=== PATIENT | female | born 1990 | race Caucasian/White ===

== ENCOUNTER 2021-03-28 00:39 | Inpatient (IN) ==
[2021-03-28] MEDS ORDERED: ONDANSETRON INJ 2 MG/ML 2 ML VIAL IV STA (01:13)
[2021-03-28] MEDS ORDERED: SODIUM CHLORIDE 0.9% 1000ML 1,000 ML IV ONE ×2 (01:13→03:01)
[2021-03-28] MEDS ORDERED: HYDROmorphone INJ 1 MG/ML SYRINGE IV STA (01:13)
--- NOTE | 2021-03-28 01:19 | Emergency Department Note ---
Impression & Plan Calculus of distal left ureter, Hydronephrosis of left kidney, Intractable nausea and vomiting ED Provider Note Name: LEOLA LOPEZ Age: 30 Sex: F Arrives Via: Walk-In Informant: Patient, Significant other ED Provider: Ata Gomez MD Chief Complaint: Left flank pain Impression: See Above Medical Decision Makin yr old female with severe left flank pain seen earlier in day in ED and found to have left distal ureteral calculus with hydro. Was feeling much better and wishing to try home management. Worsening pain, nausea, and vomiting at home. Home meds ineffective. Returns for further evaluation. Dilaudid x 2, Toradol, Zofran, Reglan eventually symptoms improving some. With degree of pain and failure outpatient will bring in for further management. Afebrile though WBC has been trending up from this morning. No clear evidence currently infected though. No indication to require repeat CT of a/p already done earlier. Hospitalist in to evaluate further Prior Medical Record and Triage/Nursing Notes reviewed by Me Additional history obtained from chart Differentials:Renal colic, UTI, appendicitis, diverticulitis, mesenteric ischemia, aortic pathology, infections, inflammatory bowel disease, PUD, biliary pathology, as well as other pathologies. Vital Signs: reviewed and remarkable for no significant abnormalities Interventions: saline lock, nss bolus 2 L IV, zofran iv, dilaudid iv x 2, toradol iv, reglan iv Labs:Reviewed and remarkable for mild wbc elevation Imaging:reviewed earlier ct a/p Consults:Dr Subhash Adkins hospitalist Plan: Disposition:Hospitalization. Condition: Good History of Present Illness:30 yr old female without history fo renal colic arrives for second time in 24 hours with left flank pain. Earlier in day was diagnosed with left 5 mm distal ureteral stone and hydro. After fluids, toradol, morphine feeling much improved and attempted home management. Symptoms worsening since getting home associated with nausea, vomiting, and severe pain. No improvement with oxy ir. Nothing makes better nor worse. No falls, trauma, injureis. Admits this has made her anxiety very bad and is having some chills though she states chills are from anxiety. No history of renal colic. No recent inciting events. No sob, headache, cough, fevers, syncope, abdominal pain, chest pain, urinary symptoms, leg swelling, diarrhea nor other symptoms. ROS: See above HPI for pertinent positives & negatives. A total of 10 systems reviewed and were otherwise negative. Past Medical History:See Below Past Surgical History:See Below Family History:See Below Social History:See Below Home Medications:See Below Allergies:See Below Vitals:Blood Pressure: 114/74, Pulse 78, RR 20, T 36.6C, O2 97% on RA Physical Exam: GENERAL: Patient is very uncomfortable appearing and in moderate distress. Dry heaving and crying. EYES: No scleral icterus, unremarkable pupils. ENT: Mucous membranes moist, no nasal congestion. NECK: No masses appreciated, nomeningismus, trachea is midline. RESPIRATORY: No dyspnea. Clear to auscultation and equal bilaterally. No wheeze, no rhonchi. CARDIOVASCULAR: Regular rate and rhythm.No murmurs, rubs, gallops appreciated. GASTROINTESTINAL: Abdomen soft, non-tender, no peritonitis.Bowel sounds positive.No masses appreciated. BACK: No midline tenderness, vague left CVA tenderness EXTREMITIES: Normal motion all extremities, no cyanosis, no edema. NEUROLOGIC: Alert and oriented, no acute motor or sensory deficits, no focal weakness, cranial nerves grossly intact. SKIN: No rash, no jaundice, no diaphoresis. 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: No Beliefs That Will Affect Care: None Current Living Situation: Spouse Feels Safe at Home: Yes Safety Concerns: Feels Safe At This Time Assistive Devices: Contacts Allergies Allergies Allergy/AdvReac Type Severity Reaction Status Date / Time amoxicillin Allergy Intermediate Rash Unverified 03/28/21 12:06 erythromycin base Allergy Intermediate Rash Verified 03/28/21 12:06 Macrolide Antibiotics Allergy Intermediate RASH Verified 03/27/21 14:41 Penicillins Allergy Intermediate Rash Verified 03/28/21 12:06 diphenhydramine Allergy Unknown unknown Verified 03/27/21 14:41 reaction Home Meds Previous Rx's Medication Instructions Recorded oxycodone 5 mg tablet 5 mg PO Q6H PRN #14 tab 03/27/21 Results & Data (ED) Vital Signs Vital Signs - 24 hr 03/28/21 00:47 03/28/21 02:07 03/28/21 04:22 Temperature 36.6 C Temperature Source Oral Pulse Rate 71 Pulse Rate [Finger] 89 78 Respiratory Rate 18 18 20 Respiratory Effort / Characteristics Non-Labored Spontaneous Respiratory Depth Normal Normal Blood Pressure 127/82 Blood Pressure [Left Arm] 120/82 114/74 Blood Pressure Mean 97 Blood Pressure Mean [Left Arm] 94 87 Blood Pressure Position [Left Arm] Lying Pulse Oximetry 98 100 97 Oxygen Delivery Method Room Air Room Air Sepsis Recent Fever Within 48 Hours No Sepsis New/Unexplained Change in Mental Status N/A Sepsis Action Taken by Nursing No Action Required Laboratory Data Result diagrams: 03/28/21 01:36 03/28/21 01:36 Lab Results 03/28/21 03/28/21 03/28/21 Range/Units 01:36 01:36 01:50 WBC 14.74 H (4.8-10.8) K/uL RBC 4.38 (4.2-5.4) M/uL Hgb 13.7 (12.0-16.0) g/dL Hct 40.0 (37-47) % MCV 91.3 (80-100) fL MCH 31.3 (25-34) pg MCHC 34.3 (32-36) g/dL RDW Std Deviation 41.2 (36.4-46.3) fL RDW Coeff of Chelly 12.2 (11.5-14.5) % Plt Count 342 (130-400) K/uL MPV 9.0 (7.4-10.4) fL Immature Gran % (Auto) 0.3 % Neut % (Auto) 86.0 % Lymph % (Auto) 8.2 % [place] % (Auto) 5.2 % Eos % (Auto) 0.2 % Baso % (Auto) 0.1 % Neut # (Auto) 12.67 H (1.4-6.5) K/uL Lymph # (Auto) 1.21 (1.2-3.4) K/uL [place] # (Auto) 0.77 H (0.11-0.59) K/uL Eos # (Auto) 0.03 (0-0.5) K/uL Baso # (Auto) 0.02 (0-0.2) K/uL Immature Gran # (Auto) 0.04 H (0.00-0.02) K/uL Sodium 138 (136-145) mmol/L Potassium 3.8 (3.5-5.1) mmol/L Chloride 109 H (98-107) mmol/L Carbon Dioxide 24 (21-32) mmol/L Anion Gap 5.0 (3-11) BUN 8 (7-18) mg/dl Creatinine 0.95 (0.6-1.2) mg/dl Est Cr Clr Drug Dosing 74.8 ml/min Est GFR ( Amer) 93.2 ml/min Est GFR (Non-Af Amer) 80.4 ml/min BUN/Creatinine Ratio 8.5 L (10-20) Glucose 120 H (70-99) mg/dl Calcium 8.6 (8.5-10.1) mg/dl Magnesium 2.0 (1.8-2.4) mg/dl COVID-19 Eval Order Covid19 at [facility] SARS-CoV-2 (PCR) (Negative) 03/28/21 Range/Units 01:50 WBC (4.8-10.8) K/uL RBC (4.2-5.4) M/uL Hgb (12.0-16.0) g/dL Hct (37-47) % MCV (80-100) fL MCH (25-34) pg MCHC (32-36) g/dL RDW Std Deviation (36.4-46.3) fL RDW Coeff of Chelly (11.5-14.5) % Plt Count (130-400) K/uL MPV (7.4-10.4) fL Immature Gran % (Auto) % Neut % (Auto) % Lymph % (Auto) % [place] % (Auto) % Eos % (Auto) % Baso % (Auto) % Neut # (Auto) (1.4-6.5) K/uL Lymph # (Auto) (1.2-3.4) K/uL [place] # (Auto) (0.11-0.59) K/uL Eos # (Auto) (0-0.5) K/uL Baso # (Auto) (0-0.2) K/uL Immature Gran # (Auto) (0.00-0.02) K/uL Sodium (136-145) mmol/L Potassium (3.5-5.1) mmol/L Chloride (98-107) mmol/L Carbon Dioxide (21-32) mmol/L Anion Gap (3-11) BUN (7-18) mg/dl Creatinine (0.6-1.2) mg/dl Est Cr Clr Drug Dosing ml/min Est GFR ( Amer) ml/min Est GFR (Non-Af Amer) ml/min BUN/Creatinine Ratio (10-20) Glucose (70-99) mg/dl Calcium (8.5-10.1) mg/dl Magnesium (1.8-2.4) mg/dl COVID-19 Eval Order SARS-CoV-2 (PCR) NEGATIVE (Negative) Administered Medications Acetaminophen (Acetaminophen 325 Mg Tab) 650 mg PO Q4H PRN PRN Reason: Pain or Fever Stop: 04/27/21 11:51 Last Admin: 03/28/21 12:24 Dose: 650 mg Documented by: [id number] Potassium Chloride/Sodium Chloride (Normal Saline W/20 Meq Kcl) 20 meq in 1,000 mls @ 150 mls/hr IV .Q6H40M FLACO Stop: 04/27/21 05:44 Last Admin: 03/28/21 21:20 Dose: 150 mls/hr Documented by: [id number] Infusion: 03/28/21 21:12 Dose: 150 mls/hr Documented by: [id number] Admin: 03/28/21 14:31 Dose: 150 mls/hr Documented by: [id number] Infusion: 03/28/21 14:31 Dose: 150 mls/hr Documented by: [id number] Infusion: 03/28/21 11:52 Dose: 150 mls/hr Documented by: [id number] Admin: 03/28/21 06:04 Dose: 100 mls/hr Documented by: [id number] Ceftriaxone Sodium 1,000 mg/ (Dextrose) 50 mls @ 100 mls/hr IV Q24H FLACO; Protocol Stop: 04/07/21 09:29 Last Infusion: 03/28/21 10:28 Dose: 0 mls/hr Documented by: [id number] Admin: 03/28/21 09:40 Dose: 100 mls/hr Documented by: [id number] Discontinued Medications Hydromorphone HCl (Hydromorphone Inj 1 Mg/Ml Syringe) 1 mg IV NOW STA Stop: 03/28/21 01:14 Last Admin: 03/28/21 01:33 Dose: 1 mg Documented by: [id number] Hydromorphone HCl (Hydromorphone Inj 0.5 Mg/0.5 Ml Syr) 0.5 mg IV NOW STA Stop: 03/28/21 02:00 Last Admin: 03/28/21 02:02 Dose: 0.5 mg Documented by: [id number] Sodium Chloride (Nss 1000ml) 1,000 mls @ 999 mls/hr IV .Q1H1M ONE Stop: 03/28/21 02:13 Last Infusion: 03/28/21 02:47 Dose: 0 mls/hr Documented by: [id number] Admin: 03/28/21 01:34 Dose: 999 mls/hr Documented by: [id number] Sodium Chloride (Nss 1000ml) 1,000 mls @ 999 mls/hr IV .Q1H1M STA Stop: 03/28/21 04:06 Last Admin: 03/28/21 05:25 Dose: Not Given Documented by: [id number] Sodium Chloride (Nss 1000ml) 1,000 mls @ 999 mls/hr IV .Q1H1M ONE Stop: 03/28/21 04:01 Last Infusion: 03/28/21 05:24 Dose: 0 mls/hr Documented by: [id number] Admin: 03/28/21 04:07 Dose: 999 mls/hr Documented by: [id number] Promethazine HCl (Phenergan) 12.5 mg in 50.5 mls @ 202 mls/hr IV NOW STA Stop: 03/28/21 05:04 Last Infusion: 03/28/21 05:24 Dose: 0 mls/hr Documented by: [id number] Admin: 03/28/21 04:56 Dose: 202 mls/hr Documented by: [id number] Ketorolac Tromethamine (Ketorolac 30 Mg/Ml Vial) 30 mg IV NOW STA Stop: 03/28/21 02:00 Last Admin: 03/28/21 02:02 Dose: 30 mg Documented by: [id number] Metoclopramide HCl (Metoclopramide Hcl Inj 5 Mg/Ml 2 Ml Vial) 5 mg IV ONE ONE Stop: 03/28/21 03:02 Last Admin: 03/28/21 04:06 Dose: 5 mg Documented by: [id number] Morphine Sulfate (Morphine Sulfate 4 Mg/Ml 1 Ml Carp\Vial) 4 mg IV NOW STA Stop: 03/28/21 04:43 Last Admin: 03/28/21 04:52 Dose: 4 mg Documented by: [id number] Morphine Sulfate (Morphine Sulfate 4 Mg/Ml 1 Ml Carp\Vial) Confirm Administered Dose 4 mg .ROUTE .STK-MED ONE Stop: 03/28/21 04:50 Last Admin: 03/28/21 04:56 Dose: Not Given Documented by: [id number] Morphine Sulfate (Morphine Sulfate 4 Mg/Ml 1 Ml Carp\Vial) 4 mg IV Q4H PRN PRN Reason: Pain Stop: 04/11/21 05:20 Last Admin: 03/28/21 09:17 Dose: 4 mg Documented by: [id number] Ondansetron HCl (Ondansetron Inj 2 Mg/Ml 2 Ml Vial) 4 mg IV NOW STA Stop: 03/28/21 01:14 Last Admin: 03/28/21 01:33 Dose: 4 mg Documented by: [id number] Promethazine HCl (Promethazine Hcl Inj 25 Mg/Ml 1 Ml Vial) Confirm Administered Dose 25 mg .ROUTE .STK-MED ONE Stop: 03/28/21 04:50 Last Admin: 03/28/21 04:56 Dose: Not Given Documented by: [id number] Tamsulosin HCl (Tamsulosin Hcl 0.4 Mg Cap) 0.4 mg PO NOW STA Stop: 03/28/21 03:07 Last Admin: 03/28/21 04:08 Dose: 0.4 mg Documented by: [id number] Discharge Plan Visit Data Chief Complaint: Vomiting Stated Complaint: SEEN EARLIER-VOMITING,BACK/SIDE PAIN GETTING WORSE ED Provider: Ata Gomez Discharge Problem: Calculus of distal left ureter, Hydronephrosis of left kidney, Intractable nausea and vomiting Patient Disposition: Admitted As Inpatient Discharge Instructions Interventions: ED Discharge Assessment Last Done: 03/28/21 04:35
[2021-03-28 01:46] LABS: Basophils # (auto) 0.02 K/uL (0-0.2); Basophils % (auto) 0.1 %; Eosinophils # (auto) 0.03 K/uL (0-0.5); Eosinophils % (auto) 0.2 %; Hemoglobin 13.7 g/dL (12.0-16.0); Immature Granulocytes # (auto) 0.04 K/uL (0.00-0.02); Immature Granulocytes % (auto) 0.3 %; Lymphocytes # (auto) 1.21 K/uL (1.2-3.4); Lymphocytes % (auto) 8.2 %; Mean Corpuscular Hemoglobin 31.3 pg (25-34); Mean Corpuscular Hgb Conc 34.3 g/dL (32-36); Mean Corpuscular Volume 91.3 fL (80-100); Monocytes # (auto) 0.77 K/uL (0.11-0.59); Monocytes % (auto) 5.2 %; Neutrophils # (auto) 12.67 K/uL (1.4-6.5); Platelet Count 342 K/uL (130-400); RDW Coefficient of Variation 12.2 % (11.5-14.5); RDW Standard Deviation 41.2 fL (36.4-46.3); Red Blood Count 4.38 M/uL (4.2-5.4); White Blood Count 14.74 K/uL (4.8-10.8)
[2021-03-28] MEDS ORDERED: KETOROLAC 30 MG/ML VIAL IV STA (01:59)
[2021-03-28] MEDS ORDERED: HYDROmorphone INJ 0.5 MG/0.5 ML SYR IV STA (01:59)
[2021-03-28 02:02] LABS: BUN Creatinine Ratio 8.5 (10-20); Calcium 8.6 mg/dl (8.5-10.1); Creatinine Clr Calc Pharmacy 74.8 ml/min; Est GFR (African American) 93.2 ml/min; Est GFR (Non-African American) 80.4 ml/min; Potassium 3.8 mmol/L (3.5-5.1)
[2021-03-28] MEDS ORDERED: METOCLOPRAMIDE HCL INJ 5 MG/ML 2 ML VIAL IV ONE (03:01)
[2021-03-28] MEDS ORDERED: TAMSULOSIN HCL 0.4 MG CAP PO STA (03:06)
[2021-03-28] MEDS ORDERED: SODIUM CHLORIDE 0.9% 1000ML 1,000 ML IV STA (03:06)
--- NOTE | 2021-03-28 03:17 | History & Physical Report ---
Date of Service March 28, 2021 Assessment & Plan (1) Obstructive uropathy: Plan: Secondary to urolithiasis No sepsis for now Anxiety, at baseline Hyperglycemia rule out DM GMF Flomax trial IVF Strain urine Neurology consult Re: Obstructive uropathy, urolithiasis N.p.o. until seen by urology in a.m. in anticipation of procedure Check hemoglobin A1c DVT prophylaxis. SCDs Full code Patient requesting update providers. Mr. Vadim Hall, contact #[phone]. Text document was generated using Glio voice recognition software. It may contain grammatical or spelling errors. Kindly contact undersigned for clarification of any documentation item in question. History of Present Illness Chief Complaint: Worsening kidney stone pain Primary Care Provider: Eric Sparks MD History obtained from patient, family, and records. Medical history significant for anxiety, urolithiasis. Last confinement April 2015 under OB service for early maternal labor status post repeat . Yesterday morning, patient noted achy left lower quadrant pain 10/10 with nausea. No emesis. Increased urinary frequency. No hematuria. No fever, no chills. Patient evaluated at the ER yesterday. CT abdomen pelvis showed 5 mm obstructing calculus protruding from the left vesicoureteral junction causing moderate left hydroureteronephrosis. No prior episodes of kidney stones as per patient although patient recalls [facility] evaluation for hematuria/kidney issues during her childhood. Patient sent home on oxycodone for renal colic symptoms. Advised to return to ER with fever. Intolerable discomfort at home with emesis. Patient return to ER with . MEDICAL HISTORY: As above. SURGERIES: Appendectomy, section. FAMILY HISTORY: Hypertension. Kidney stones PERSONAL AND SOCIAL HISTORY: Nonsmoker. No EtOH intake. 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 Allergies Allergy/AdvReac Type Severity Reaction Status Date / Time Macrolide Antibiotics Allergy Intermediate RASH Verified 03/27/21 14:41 diphenhydramine Allergy Unknown unknown Verified 03/27/21 14:41 reaction erythromycin base Allergy Unknown Rash Verified 03/27/21 14:41 Penicillins Allergy Unknown Rash Verified 03/27/21 14:41 amoxicillin Allergy Rash Unverified 03/27/21 14:41 Home Medications Medication Instructions Recorded Confirmed Type oxycodone 5 mg tablet 5 mg PO Q6H PRN #14 tab 03/27/21 Rx Past Med/Surg History Medical History No pertinent past medical history Social History Smoking Status: Never smoker Hx Alcohol Use: No Hx Substance Use: No Preferred Language: Maori Communication Ability: Effective Secondary Teacher Required: No Beliefs That Will Affect Care: None Current Living Situation: Spouse Feels Safe at Home: Yes Safety Concerns: Feels Safe At This Time Assistive Devices: Glasses Review of Systems Review of Systems: As per HPI, all 10 systems reviewed, all other ROS negative Physical Exam Physical Exam: GENERAL: uncomfortable, no respiratory distress SKIN: Normal color, warm HEENT: [place] palpebral conjunctivae, no ptosis, dry buccal mucosa NECK : Supple, no tenderness CHEST : CTA, no tenderness HEART : RRR, no obvious murmurs ABDOMEN: Some distention, nontender BACK : No flank tenderness EXTREMITIES : No LE swelling/tenderness, no other conspicuous deformities noted NEUROLOGIC : Coherent, no facial asymmetry, no other gross focality Results & Data Results & Data ([facility]) Vital Signs (Past 12 Hours) Vital Signs Temp Pulse Pulse Resp BP BP Pulse Ox 03/28/21 02:07 89 18 120/82 100 03/28/21 00:47 36.6 C 71 18 127/82 98 Laboratory Results Laboratory Results WBC 14.74 K/uL (4.8-10.8) H 03/28/21 01:36 RBC 4.38 M/uL (4.2-5.4) 03/28/21 01:36 Hgb 13.7 g/dL (12.0-16.0) 03/28/21 01:36 Hct 40.0 % (37-47) 03/28/21 01:36 MCV 91.3 fL (80-100) 03/28/21 01:36 MCH 31.3 pg (25-34) 03/28/21 01:36 MCHC 34.3 g/dL (32-36) 03/28/21 01:36 RDW Std Deviation 41.2 fL (36.4-46.3) 03/28/21 01:36 RDW Coeff of Chelly 12.2 % (11.5-14.5) 03/28/21 01:36 Plt Count 342 K/uL (130-400) 03/28/21 01:36 MPV 9.0 fL (7.4-10.4) 03/28/21 01:36 Immature Gran % (Auto) 0.3 % 03/28/21 01:36 Neut % (Auto) 86.0 % 03/28/21 01:36 Lymph % (Auto) 8.2 % 03/28/21 01:36 [place] % (Auto) 5.2 % 03/28/21 01:36 Eos % (Auto) 0.2 % 03/28/21 01:36 Baso % (Auto) 0.1 % 03/28/21 01:36 Neut # (Auto) 12.67 K/uL (1.4-6.5) H 03/28/21 01:36 Lymph # (Auto) 1.21 K/uL (1.2-3.4) 03/28/21 01:36 [place] # (Auto) 0.77 K/uL (0.11-0.59) H 03/28/21 01:36 Eos # (Auto) 0.03 K/uL (0-0.5) 03/28/21 01:36 Baso # (Auto) 0.02 K/uL (0-0.2) 03/28/21 01:36 Immature Gran # (Auto) 0.04 K/uL (0.00-0.02) H 03/28/21 01:36 Sodium 138 mmol/L (136-145) 03/28/21 01:36 Potassium 3.8 mmol/L (3.5-5.1) 03/28/21 01:36 Chloride 109 mmol/L (98-107) H 03/28/21 01:36 Carbon Dioxide 24 mmol/L (21-32) 03/28/21 01:36 Anion Gap 5.0 (3-11) 03/28/21 01:36 BUN 8 mg/dl (7-18) 03/28/21 01:36 Creatinine 0.95 mg/dl (0.6-1.2) 03/28/21 01:36 Est Cr Clr Drug Dosing 74.8 ml/min 03/28/21 01:36 Est GFR ( Amer) 93.2 ml/min 03/28/21 01:36 Est GFR (Non-Af Amer) 80.4 ml/min 03/28/21 01:36 BUN/Creatinine Ratio 8.5 (10-20) L 03/28/21 01:36 Glucose 120 mg/dl (70-99) H 03/28/21 01:36 Calcium 8.6 mg/dl (8.5-10.1) 03/28/21 01:36 Magnesium 2.0 mg/dl (1.8-2.4) 03/28/21 01:36 COVID-19 Eval Order Covid19 at [facility] 03/28/21 01:50 SARS-CoV-2 (PCR) NEGATIVE (Negative) 03/28/21 01:50
[2021-03-28] MEDS ORDERED: MoRPHine SULFATE 4 MG/ML 1 ML CARP\\VIAL IV STA (04:42)
[2021-03-28] MEDS ORDERED: PROMETHAZINE HCL INJ 25 MG/ML 1 ML VIAL ONE (04:49)
[2021-03-28] MEDS ORDERED: MoRPHine SULFATE 4 MG/ML 1 ML CARP\\VIAL ONE (04:49)
[2021-03-28] MEDS ORDERED: PROMETHAZINE 12.5 MG/50.5 ML BAG IV STA (04:50)
[2021-03-28] MEDS ORDERED: PROMETHAZINE HCL 12.5 MG in SODIUM CHLORIDE 0.9% 50 ML IV PRN (05:21)
[2021-03-28] MEDS ORDERED: MoRPHine SULFATE 4 MG/ML 1 ML CARP\\VIAL IV PRN (05:21)
[2021-03-28] MEDS ORDERED: LORazepam 0.25 MG/0.5 ML VIAL IV PRN (05:21)
[2021-03-28] MEDS ORDERED: oxyCODONE HCL IR 5 MG TAB (IMMEDIATE RELEASE) PO PRN (05:21)
[2021-03-28 05:58] LABS: Appearance Urine Clear (Clear); Bacteria Urine Automated 3+ (Negative); Bilirubin Urine Negative (Negative); Blood Urine 2+ (Negative); Cast Urine Automated 0 /lpf (0-5); Color Urine Yellow; Glucose Urine UA Trace (Negative); Ketones Urine 1+ (Negative); Leukocyte Esterase Urine Negative (Negative); Nitrite Urine Negative (Negative); Protein Urine Negative (Negative); Urobilinogen Urine Negative (Negative); pH Urine 6.5 (4.5-7.5)
[2021-03-28] MEDS: NSS + 20MEQ KCL 20 MEQ/1,000 ML BAG IV SCH ×3 (06:04→21:20)
--- NOTE | 2021-03-28 06:44 | Urology Consultation ---
Date of Consultation March 28, 2021 Assessment & Plan (1) Calculus of distal left ureter: Patient has been admitted by the hospitalist. We recommend proceeding as follows: Provide analgesics Provide antiemetics Provide IV fluid for hydration Provide Flomax for expulsive therapy I discussed with the patient had a 5 mm stone may pass on its own. We will keep her n.p.o. for the present time until evaluated by Dr. Patrick to see if any cystoscopic intervention will be required this morning. Attending note: Patient independently evaluated, assessed, interviewed, and examined. Agree with above. Patient has a 5 mm stone. Discussed maximum expulsion therapy with hydration, IV hydration, medications for symptom control and management and close monitoring. Discussed stone passage rates. Discussed different options. Discussed options for conservative measure and maximum expulsion medical therapy and symptom controlled. Discussed ESWL. Discussed Ureteroscopy with extraction and/or laser lithotripsy. Risks and benefits were discussed. Stone free rates were also discussed as well as possibility of multiple procedures. Ureteral stents were discussed as well as post-operative issues and pain management. All questions were answered. We'll plan to continue to monitor. Patient okay to start diet today. N.p.o. at midnight. History of Present Illness Reason for Consultation: Nephrolithiasis Attending Physician: Orlando Brown MD History of Present Illness This is a 30-year-old female who presented to [facility] secondary to left flank/back pain that has been present since yesterday. Patient says that she has never had this pain before. She does not note any palliative factors other than pain medicine that was administered in the emergency department. She does not note any provocative factors. She does note that the pain does radiate to the front of her abdomen and her groin. She denies any dysuria or hematuria. Patient says that she has not had this pain before but she does report a "kidney problem" as a child but she is unsure of any of the details of this. She denies any fevers, shakes, chills. She has had some associated nausea vomiting Since admission [facility] the patient had labs and imaging which I independently reviewed. CBC revealed white blood cell count was elevated at 14.7. Her hemoglobin, hematocrit, and platelet count are all within normal range. Chemistry profile showed her sodium, potassium, BUN, creatinine are all within normal range. Urinalysis did show 2+ blood. She was also noted to have 3+ bacteria but did not have any pyuria. A Covid test has been performed and is noted to be negative.Patient also had a CT scan of the abdomen pelvis that showed a 5 mm obstructing kidney stone at the left vesicoureteral junction resulting in moderate left hydronephrosis. At the time of interview the patient was resting comfortably in bed and her pain was well controlled Allergies Allergy/AdvReac Type Severity Reaction Status Date / Time Macrolide Antibiotics Allergy Intermediate RASH Verified 03/27/21 14:41 diphenhydramine Allergy Unknown unknown Verified 03/27/21 14:41 reaction erythromycin base Allergy Unknown Rash Verified 03/27/21 14:41 Penicillins Allergy Unknown Rash Verified 03/27/21 14:41 amoxicillin Allergy Rash Unverified 03/27/21 14:41 Home Medications Medication Instructions Recorded Confirmed Type oxycodone 5 mg tablet 5 mg PO Q6H PRN #14 tab 03/27/21 Rx Patient History Medical History No pertinent past medical history Social History Smoking Status: Never smoker Hx Alcohol Use: No Hx Substance Use: No Preferred Language: Kazakh Communication Ability: Effective 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 Maker Machine Required: No Beliefs That Will Affect Care: None Current Living Situation: Spouse Feels Safe at Home: Yes Safety Concerns: Feels Safe At This Time Assistive Devices: Glasses Past Medical History Medical history: Patient denies history of nephrolithiasis Family History Pertinent family history: Denies family history of premature coronary artery disease Surgical History Surgical history: Patient denies prior surgeries Review of Systems Constitutional: no fever and no chills Eyes: no diplopia Ear, Nose, Mouth, Throat: no ear pain Respiratory: no cough Cardiovascular: no chest pain Gastrointestinal: + nausea and + vomiting Genitourinary: + flank pain (Left-sided); no dysuria and no hematuria Musculoskeletal: + back pain (Left-sided flank pain) Integumentary: no rash Neurologic: no localized weakness Physical Exam Constitutional: WD/WN, vitals as above Eyes: no conjunctival abnormality ENMT: Ears: no hearing impairment Mouth: no oropharynx abnormality Neck: trachea midline Respiratory: normal respiratory effort, lungs clear to auscultation Cardiovascular: Rate/Rhythm: regular rate and regular rhythm Gastrointestinal (Abdomen): Abdomen is soft, nondistended, and nontender to palpation. Musculoskeletal: No gross orthopedic abnormalities. No calf tenderness Skin: no rashes, warm and dry Neurologic: moves all extremities Psychiatric: A+Ox3, euthymic affect Results & Data ([facility]) Vital Signs (Past 12 Hours) Vital Signs Temp Pulse Pulse Resp BP BP Pulse Ox 03/28/21 05:05 36.8 C 103 H 16 123/75 98 03/28/21 04:22 78 20 114/74 97 03/28/21 02:07 89 18 120/82 100 03/28/21 00:47 36.6 C 71 18 127/82 98 PG Care Time/CCT Total # of Minutes Spent Total Time Spent with Patient: Total time spent is greater than 50% in coordination of care (as documented) at patient's floor/unit and/or counseling patient: Coding Level of Care Code 15302 Inpt Consult Level 5 Diagnoses Calculus of distal left ureter N20.1
[2021-03-28] MEDS: cefTRIAXone SODIUM 1,000 MG in DEXTROSE 5% 50 ML IV SCH (09:40)
[2021-03-28] MEDS ORDERED: ACETAMINOPHEN 325 MG TAB PO PRN (11:52)
[2021-03-28] MEDS ORDERED: MoRPHine SULFATE 2 MG/ML CARP IV PRN (12:05)
--- NOTE | 2021-03-28 14:31 | Hospitalist Progress Note ---
Date of Service March 28, 2021 Assessment & Plan (1) Obstructive uropathy: Plan: Moderate left hydroureteronephrosis Left ureteral calculus -CT ABD:There is a 5 mm obstructing calculus protruding from the left vesicoureteral junction. This causes moderate left hydroureteronephrosis. No additional calculi are identified in either kidney. Continue IV fluids, Flomax Strain urine Pain control Empirically on Rocephin Appreciate neurology input Abnormal UA Rule out UTI Urine culture pending On Rocephin empirically Anxiety Disorder Previously on Buspar, SSRI Currently not on meds Mood stable Hyperglycemia HbA1c pending DVT Px: SCDs Code Status Full code Admission and Anticipated Discharge Date Admission Date: March 28, 2021 Subjective Patient is seen and examined at bedside States having nausea, vomiting earlier today Also reports left flank pain radiating to groin Denies dysuria, hematuria Also denies chest pain, dyspnea, dizziness Offers no other complaints Review of Systems Review of Systems: All systems reviewed & are unremarkable except as noted in Subjective Physical Exam Physical Exam: Physical Exam: Vitals signs as noted above General Appearance:Moderately built and nourished, no apparent distress Head: normocephalic, Atraumatic Eyes: normal inspection, EOMI Neck: supple, Trachea midline Respiratory/Chest: Normal breath sounds, CTA Cardiovascular: S1, S2, No murmur Abdomen/GI:Soft, Left flank, LLQ tender, Bowel sounds present Extremities/Musculoskeletal:normal inspection, no edema Neurologic/Psych:AAOX3, grossly no focal neurological deficits Skin: normal color, warm Results & Data Results & Data ([facility]) Vital Signs (Past 12 Hours) Vital Signs Temp Pulse Resp BP Pulse Ox 03/28/21 07:51 37.1 C 75 20 102/66 97 03/28/21 05:05 36.8 C 103 H 16 123/75 98 03/28/21 04:22 78 20 114/74 97 Laboratory Results Short CBC 03/28/21 Range/Units 01:36 WBC 14.74 H (4.8-10.8) K/uL Hgb 13.7 (12.0-16.0) g/dL Hct 40.0 (37-47) % Plt Count 342 (130-400) K/uL BMP 03/28/21 01:36 Sodium 138 Potassium 3.8 Chloride 109 H Carbon Dioxide 24 BUN 8 Creatinine 0.95 Glucose 120 H Calcium 8.6 Urine 03/28/21 Range/Units 05:42 Urine Color Yellow Urine Appearance Clear (Clear) Urine pH 6.5 (4.5-7.5) Ur Specific [place] 1.010 (1.000-1.030) Urine Protein Negative (Negative) Urine Glucose (UA) Trace H (Negative)
[2021-03-29] MEDS: NSS + 20MEQ KCL 20 MEQ/1,000 ML BAG IV SCH (03:48)
[2021-03-29] MEDS: cefTRIAXone SODIUM 1,000 MG in DEXTROSE 5% 50 ML IV SCH (07:22)
--- NOTE | 2021-03-29 07:59 | Urology Progress Note ---
Date of Service March 29, 2021 Assessment & Plan (1) Calculus of distal left ureter: (2) Obstructive uropathy: Plan: 30 year-old female patient admitted with intractable left flank pain/nausea secondary to obstructing 5 mm left UVJ calculus. -Patient remains afebrile. -Labs reviewed - white count returned to normal, creatinine 0.68. -Urine culture pending, treat if indicated. -She did have spontaneous passage of stone yesterday, analysis pending. -Left flank pain and nausea has since resolved. -KUB this AM reviewed - left UVJ stone not visualized on x-ray. -Okay to have diet today. -No acute intervention indicated at this time, okay to discharge from perspective. -Discussed with patient basic stone prevention. -Will arrange outpatient follow-up with urology service for continued care. -Expected clinical course reviewed with patient, all questions answered. Thank you for allowing us to participate in the acute care of Ms. Hall. Please reconsult us with additional questions, concerns or changes in patient status. Admission and Anticipated Discharge Date Admission Date: March 28, 2021 Subjective Patient seen and examined this AM. She reports she is feeling well. States yesterday before lunch, she did pass a stone that was sent for analysis. Has not had any flank or abdominal pain since stone passage. Denies dysuria or hematuria. Denies urinary urgency/frequency. Feels she empties her bladder well overall. Denies fevers or chills. Denies nausea or vomiting. Urine continues to be strained. Has been NPO since midnight. Chart review: Afebrile Wbc 5.31 (previously 14.74) Hgb 11.7 (previously 13.7) Creatinine 0.68 (previously 0.95). Urine culture pending. Patient currently on IV Ceftriaxone. Denies additional urologic concerns today. Review of Systems Constitutional: as per Subjective / HPI; no fever and no chills Gastrointestinal: as per Subjective / HPI; no nausea and no vomiting Physical Exam Constitutional: well developed and well nourished; no acute distress and not ill appearing Respiratory: normal respiratory effort and able to speak in complete sentences; no respiratory distress and no audible wheezes Gastrointestinal (Abdomen): Inspection/Auscultation: abdomen normal to inspection; abdomen not distended Percussion/Palpation: abdomen soft; abdomen nontender and no guarding Psychiatric: Orientation: alert, oriented x 3 and cooperative Affect: euthymic affect Genitourinary: no CVA tenderness Results & Data ([facility]) Vital Signs (Past 12 Hours) Vital Signs Temp Pulse Resp BP Pulse Ox 03/29/21 07:03 36.6 C 62 15 104/68 97 03/28/21 22:53 36.9 C 67 14 100/62 98 PG Care Time/CCT Total # of Minutes Spent Total Time Spent with Patient: Total time spent is greater than 50% in coord ination of care (as documented) at patient's floor/unit and/or counseling patient: Coding Level of Care Code 23592 Subseq Hosp Care Lvl 2 Diagnoses Calculus of distal left ureter N20.1 Obstructive uropathy N13.9
[2021-03-29 08:11] LABS: Basophils # (auto) 0.02 K/uL (0-0.2); Basophils % (auto) 0.4 %; Eosinophils % (auto) 1.9 %; Hematocrit (blood only) 35.7 % (37-47); Hemoglobin 11.7 g/dL (12.0-16.0); Immature Granulocytes # (auto) 0.01 K/uL (0.00-0.02); Immature Granulocytes % (auto) 0.2 %; Lymphocytes # (auto) 2.02 K/uL (1.2-3.4); Mean Corpuscular Hemoglobin 30.6 pg (25-34); Mean Corpuscular Hgb Conc 32.8 g/dL (32-36); Mean Corpuscular Volume 93.5 fL (80-100); Mean Platelet Volume 9.1 fL (7.4-10.4); Monocytes # (auto) 0.42 K/uL (0.11-0.59); Monocytes % (auto) 7.9 %; Neutrophils # (auto) 2.74 K/uL (1.4-6.5); Neutrophils % (auto) 51.6 %; Platelet Count 242 K/uL (130-400); RDW Coefficient of Variation 12.5 % (11.5-14.5); RDW Standard Deviation 42.6 fL (36.4-46.3); Red Blood Count 3.82 M/uL (4.2-5.4); White Blood Count 5.31 K/uL (4.8-10.8)
--- NOTE | 2021-03-29 08:25 | XRay Report ---
KUB HISTORY: left UVJ calculus COMPARISON: Abdomen and pelvis CT 03/27/2021. FINDINGS: The bowel gas pattern is unremarkable. There are no dilated loops of small bowel to suggest an obstruction. The patient's 5 mm left UVJ stone seen on the prior CT examination is not identifie d. This may have passed in the interval. No renal or ureteral calculi. No pneumoperitoneum or pneumat osis. Punctate calcifications in the left deep pelvis are consistent with phleboliths. IMPRESSION: The patient's 5 mm left UVJ stone seen on the prior CT examination is not identified. This may have p assed in the interval. No renal or ureteral calculi. ACT 112: Negative or not required by law. Electronically signed by: Raheel Collins M.D. 03/29/2021 8:23 AM
[2021-03-29 08:42] LABS: BUN Creatinine Ratio 8.7 (10-20); Creatinine Clr Calc Pharmacy 104.5 ml/min; Est GFR (Non-African American) 117.4 ml/min; Magnesium 1.8 mg/dl (1.8-2.4); Potassium 3.9 mmol/L (3.5-5.1)
[2021-03-29] MEDS ORDERED: TAMSULOSIN HCL 0.4 MG CAP PO SCH (09:00)
[2021-03-29 09:05] LABS: Estimated Average Glucose 108 mg/dl; Hemoglobin A1C 5.4 % (4.5-5.6)
--- NOTE | 2021-03-29 10:56 | Hospitalist Progress Note ---
Date of Service March 29, 2021 Assessment & Plan (1) Obstructive uropathy: Plan: Moderate left hydroureteronephrosis Left ureteral calculus -CT ABD:There is a 5 mm obstructing calculus protruding from the left vesicoureteral junction. This causes moderate left hydroureteronephrosis. No additional calculi are identified in either kidney. Received IV fluids, Flomax Strain urine Pain control Appreciate Urology input On delayed passage of stone Symptomatically much improved left UVJ stone not visualized on KUB Complicated UTI-POA Urine culture: Gram negative bacilli Received Rocephin Day #2 Patient prefers to be discharged despite explaining the risks and complications We will discharge on oral ciprofloxacin Advised to follow-up with PCP regarding culture sensitivities and possible need for antibiotic change if needed Patient understands and agrees with current management. Anxiety Disorder Previously on Buspar, SSRI Currently not on meds Mood stable Hyperglycemia HbA1c 5.4 DVT Px: SCDs Code Status Full code Admission and Anticipated Discharge Date Admission Date: March 28, 2021 Subjective Patient is seen and examined at bedside States feels well today Had spontaneous passage of ureteral stone yesterday Nausea, vomiting, flank pain resolved Denies dysuria, hematuria, chest pain, dyspnea, dizziness Eager to get discharged Review of Systems Review of Systems: All systems reviewed & are unremarkable except as noted in Subjective Physical Exam Physical Exam: Physical Exam: Vitals signs as noted above General Appearance:Moderately built and nourished, no apparent distress Head: normocephalic, Atraumatic Eyes: normal inspection, EOMI Neck: supple, Trachea midline Respiratory/Chest: Normal breath sounds, CTA Cardiovascular: S1, S2, No murmur Abdomen/GI:Soft, Left flank, LLQ tender, Bowel sounds present Extremities/Musculoskeletal:normal inspection, no edema Neurologic/Psych:AAOX3, grossly no focal neurological deficits Skin: normal color, warm Results & Data Results & Data ([facility] [place]) Vital Signs (Past 12 Hours) Vital Signs Temp Pulse Resp BP Pulse Ox 03/29/21 07:03 36.6 C 62 15 104/68 97 Laboratory Results Short CBC 03/29/21 Range/Units 07:40 WBC 5.31 (4.8-10.8) K/uL Hgb 11.7 L (12.0-16.0) g/dL Hct 35.7 L (37-47) % Plt Count 242 (130-400) K/uL BMP 03/29/21 07:40 Sodium 142 Potassium 3.9 Chloride 111 H Carbon Dioxide 28 BUN 6 L Creatinine 0.68 Glucose 103 H Calcium 8.0 L
--- NOTE | 2021-03-29 11:14 | Discharge Summary ---
Date of Service March 29, 2021 Admission HPI Per Admitting Provider History obtained from patient, family, and records. Medical history significant for anxiety, urolithiasis. Last confinement April 2015 under OB service for early maternal labor status post repeat . Yesterday morning, patient noted achy left lower quadrant pain 10/10 with nausea. No emesis. Increased urinary frequency. No hematuria. No fever, no chills. Patient evaluated at the ER yesterday. CT abdomen pelvis showed 5 mm obstructing calculus protruding from the left vesicoureteral junction causing moderate left hydroureteronephrosis. No prior episodes of kidney stones as per patient although patient recalls [facility] [place] evaluation for hematuria/kidney issues during her childhood. Patient sent home on oxycodone for renal colic symptoms. Advised to return to ER with fever. Intolerable discomfort at home with emesis. Patient return to ER with . MEDICAL HISTORY: As above. SURGERIES: Appendectomy, section. FAMILY HISTORY: Hypertension. Kidney stones PERSONAL AND SOCIAL HISTORY: Nonsmoker. No EtOH intake. 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 Admission Exam Per Admitting Provider Physical Exam Physical Exam: GENERAL: uncomfortable, no respiratory distress SKIN: Normal color, warm HEENT: [place] palpebral conjunctivae, no ptosis, dry buccal mucosa NECK : Supple, no tenderness CHEST : CTA, no tenderness HEART : RRR, no obvious murmurs ABDOMEN: Some distention, nontender BACK : No flank tenderness EXTREMITIES : No LE swelling/tenderness, no other conspicuous deformities noted NEUROLOGIC : Coherent, no facial asymmetry, no other gross focality Principal Diagnosis Moderate left hydroureteronephrosis Left ureteral calculus Suspected Complicated Urinary Tract Infection Discharge Data Allergies Allergy/AdvReac Type Severity Reaction Status Date / Time amoxicillin Allergy Intermediate Rash Unverified 03/28/21 12:06 erythromycin base Allergy Intermediate Rash Verified 03/28/21 12:06 Macrolide Antibiotics Allergy Intermediate RASH Verified 03/27/21 14:41 Penicillins Allergy Intermediate Rash Verified 03/28/21 12:06 diphenhydramine Allergy Unknown unknown Verified 03/27/21 14:41 reaction Consultations 03/28/21 02:52 ED Decision to Admit Stat 03/28/21 05:21 Consult Urology Routine Hospital Course (1) Obstructive uropathy: Moderate left hydroureteronephrosis Left ureteral calculus -CT ABD:There is a 5 mm obstructing calculus protruding from the left vesicoureteral junction. This causes moderate left hydroureteronephrosis. No additional calculi are identified in either kidney. Received IV fluids, Flomax Strain urine Pain control Appreciate Urology input On delayed passage of stone Symptomatically much improved left UVJ stone not visualized on KUB Complicated UTI-POA Urine culture: Gram negative bacilli Received Rocephin Day #2 Patient prefers to be discharged despite explaining the risks and complications We will discharge on oral ciprofloxacin Advised to follow-up with PCP regarding culture sensitivities and possible need for antibiotic change if needed Patient understands and agrees with current management. Anxiety Disorder Previously on Buspar, SSRI Currently not on meds Mood stable Hyperglycemia HbA1c 5.4 DVT Px: SCDs Code Status Full code Total Time Total Time Spent Total Time Spent (In Minutes): 42 minutes Discharge Plan Discharge Items Patient Disposition: Home - Self-Care Reason For Visit: OBSTRUCTIVE UROPATHY Discharge Diagnosis: Moderate left hydroureteronephrosis Left ureteral calculus Suspected Complicated Urinary Tract Infection Activity: Per Instructions section Exercise/Sports: Gradually increase as tolerated Non-emergency contact: Primary Care Provider Call non-emergency contact if: you have any medication questions, your symptoms worsen, your pain is concerning for you and you have a fever Follow-up/Referrals: Eric Sparks MD [Primary Care Provider] - Diet: Regular Addtl Attending Provider Instructions: Follow up with your Primary Care on 03/30/21 at 11:40 Am as scheduled Follow-up with your urologist Dr. Patrick as recommended Complete the antibiotic course as prescribed. Your urine culture is pending at the time of discharge. Follow-up with your physician for results and discuss for possible need for change of antibiotics based on your culture sensitivities. Seek immediate medical attention if your symptoms reoccur or worsen Please take all medications as instructed on discharge list below. Please call if you have any questions or problems. You can reach a [facility] hospitalist on duty at [facility] 24 hours a day by calling [phone] Pending Studies at Discharge: Yes Studies:: Urine Culture Stand-Alone Forms: My [facility], Smoking Cessation Medications and DC Order Prescriptions: New ciprofloxacin HCl 500 mg tablet 500 mg PO BID Qty: 10 RF: 0 Continued oxycodone 5 mg tablet 5 mg PO Q6H PRN (Reason: pain) Qty: 14 RF: 0 Discharge Orders: Discharge Order (Routine); Ordered 03/29/21 Ordered By: Orlando Brown Admission Data Admit Date/Time: 03/28/21 03:22 Attending Provider: Orlando Brown Admit Provider: Anthony Cullen Primary Care Provider: Eric Sparks Other Providers: Anthony Cullen ; Shashi Veronica ; Higinio Arevalo Christophe T. ; Alisha Omalley ; Venkatesh Patrick ; Isela Castillo ; Cinthya Leon ; Alison Lerma ; Ata Duarte ; Marciano Todd ; Mayra Painter ; Sara Lerma ; Isaias Monson Other Interventions: Discharge Summary Assessment (RN) Last Done: 03/29/21 11:09
[2021-04-01 14:01] LABS: Component 2 DNR; Source URETER STONE
== END 2021-03-29 11:37 | disposition home or self-care (01) | DRG 694 ==
LOC: ED 00:39 → 3W 03:22
DX: F41.9 Anxiety disorder, unspecified; Z88.1 Allergy status to other antibiotic agents; Z88.8 Allergy status to other drugs, medicaments and biological substances; Z87.442 Personal history of urinary calculi; Z84.1 Family history of disorders of kidney and ureter; Z88.0 Allergy status to penicillin; N13.2 Hydronephrosis with renal and ureteral calculous obstruction